=== PATIENT | male | born 1955 | race Caucasian/White ===

== ENCOUNTER → 2020-09-21 | Outpatient (CLI) | payer MEDICARE ==
[~2020-09-21] VITALS: Ht 170.2 cm; Wt 78.5 kg
[~2020-09-21] MED LIST: ASPIRIN EC81 MG PO; CRESTOR10 MG PO; FLOMAX0.4 MG PO; LOPRESSOR 25 MG25 MG PO; NORCO 5-325 TA1 EACH PO; NORVASC5 MG PO; PLAVIX 75 MG TA75 MG PO; PREDNISONE 20 M20 MG GT; PROSCAR5 MG PO; PROTONIX40 MG PO; VITAMIN D 11000 UNIT PO
== END ==
LOC: OPSV 09-15 09:00
DX: M31.7 Microscopic polyangiitis (principal); L92.9 Granulomatous disorder of the skin and subcutaneous tissue, unspecified
CPT/HCPCS: 96365; 96366; 96375; 96413; 96415; J1720; J7050; J9312

== ENCOUNTER → 2021-04-04 | Outpatient (CLI) | payer MEDICARE ==
[~2021-04-04] VITALS: Ht 170.2 cm; Wt 78.5 kg
== END ==
LOC: OPSV 08:00
DX: M31.7 Microscopic polyangiitis (principal); L92.9 Granulomatous disorder of the skin and subcutaneous tissue, unspecified
CPT/HCPCS: 96375; 96413; 96415; J1720; J7050; J9312

== ENCOUNTER → 2021-10-27 | Outpatient (CLI) | payer MEDICARE ==
[~2021-10-27] VITALS: Ht 170.2 cm; Wt 78.5 kg
== END ==
LOC: OPSV 08:49
DX: L92.9 Granulomatous disorder of the skin and subcutaneous tissue, unspecified (principal); M31.7 Microscopic polyangiitis
CPT/HCPCS: 96375; 96413; 96415; J1720; J7030; J9312

== ENCOUNTER 2021-12-07 04:09 | Observation (INO) | payer OTHER, MEDICARE ==
[~2021-12-07] VITALS: Ht 170.2 cm; Wt 81.2 kg
[~2021-12-07 04:09] MED LIST changes: +NORVASC10 MG PO; -NORVASC5 MG PO
[2021-12-07 04:27] LABS: RED BLOOD COUNT 4.68 M/UL (4.20-5.50); WHITE BLOOD COUNT 8.3 K/UL (4.5-11.0)
[2021-12-07 04:53] LABS: BUN/CREATININE RATIO 13 (0-10)
[2021-12-07] MEDS ORDERED: ZESTRIL2.5 MG PO (12:15)
[2021-12-07] MEDS ORDERED: TOPROL XL 25 MG25 MG PO (12:15)
--- NOTE | 2021-12-07 16:44 | NUR ---
DR. PETERSON STATED PATIENT'S TELEMETRY COULD BE REMOVED FOR MRI.
[2021-12-08 06:42] LABS: HEMOGLOBIN 13.4 gm/dl (14.0-17.5); RED BLOOD COUNT 4.52 M/UL (4.20-5.50); WHITE BLOOD COUNT 10.3 K/UL (4.5-11.0)
--- NOTE | 2021-12-08 10:02 | NUR ---
RN NOTIFIED DR. PETERSON OF CARDIOLOGY SIGNING OFF ON PATIENT.
== END 2021-12-09 18:24 | disposition home or self-care (01) ==
LOC: ER1 04:09 → M/S 08:18 → CDU 08:18 → M/S 10:46
PROVIDERS: Physician Assistant; ADMIT Internal Medicine
DX: N17.9 Acute kidney failure, unspecified (principal); I21.4 Non-ST elevation (NSTEMI) myocardial infarction; U07.1 COVID-19; M31.30 Wegener's granulomatosis without renal involvement; I12.9 Hypertensive chronic kidney disease with stage 1 through stage 4 chronic kidney disease, or unspecified chronic kidney disease; N18.30 Chronic kidney disease, stage 3 unspecified; H70.11 Chronic mastoiditis, right ear; E78.5 Hyperlipidemia, unspecified; J60 Coalworker's pneumoconiosis; N40.0 Benign prostatic hyperplasia without lower urinary tract symptoms; F17.220 Nicotine dependence, chewing tobacco, uncomplicated; D50.9 Iron deficiency anemia, unspecified; E55.9 Vitamin D deficiency, unspecified; I95.9 Hypotension, unspecified; I25.10 Atherosclerotic heart disease of native coronary artery without angina pectoris; E86.0 Dehydration; G51.0 Bell's palsy; D63.1 Anemia in chronic kidney disease; Q67.0 Congenital facial asymmetry; Z79.02 Long term (current) use of antithrombotics/antiplatelets; Z79.899 Other long term (current) drug therapy; Z88.0 Allergy status to penicillin; Z88.5 Allergy status to narcotic agent; Z90.49 Acquired absence of other specified parts of digestive tract; Z95.1 Presence of aortocoronary bypass graft; Z95.5 Presence of coronary angioplasty implant and graft
CPT/HCPCS: 0240U; 36415; 70450; 70551; 71045; 80048; 80053; 82550; 82553; 83735; 84484; 85025; 93005; 94664; 94760; 96374; 99285; G0378; J1100; J1650; J7030

== ENCOUNTER → 2022-03-06 | Outpatient (CLI) | payer MEDICARE ==
[~2022-03-06] MED LIST changes: +TOPROL XL 25 MG25 MG PO; +ZESTRIL2.5 MG PO
== END ==
LOC: HEART 5 08:44
DX: R06.02 Shortness of breath (principal); I07.1 Rheumatic tricuspid insufficiency
CPT/HCPCS: 93306